=== PATIENT | male | born 1980 | race Caucasian/White ===

== ENCOUNTER 2022-10-10 18:03 | Emergency (ER) | payer SELFPAY ==
[~2022-10-10] VITALS: Ht 177.8 cm; Wt 129.0 kg
[2022-10-10 18:09] VITALS: BP 147/99
[2022-10-10] MEDS ORDERED: LIDOCAINE HCL/EPINEPHRINE 1%-EPI 1:100,000 20 ML VIAL INFIL ONE (18:45)
[2022-10-10] MEDS ORDERED: IBUPROFEN 600MG TABLET PO ONE (18:45)
[2022-10-10] MEDS ORDERED: LIDOCAINE HCL/PF 1% 10 MG/ML 5ML VIAL INFIL ONE (18:45)
[2022-10-10] MEDS ORDERED: BACITRACIN ZINC OINT UDPKT TOP ONE (18:45)
[2022-10-10] MEDS ORDERED: CEPH500C2 MT (19:10)
== END 2022-10-10 19:47 | disposition home or self-care (01) ==
LOC: ER 18:03
DX: S81.011A Laceration without foreign body, right knee, initial encounter (principal); X58.XXXA Exposure to other specified factors, initial encounter; Y93.89 Activity, other specified; Y92.89 Other specified places as the place of occurrence of the external cause; Y99.8 Other external cause status
CPT/HCPCS: 12002; 99283; J3490